=== PATIENT | female | born 1980 | race American Indian/Alaskan Native ===

== ENCOUNTER 2020-09-14 06:33 | Day surgery (SDC) | payer BC ==
[2020-09-14 07:04] LABS: Specific Gravity 1.025 (1.005-1.030)
[2020-09-14] MEDS ORDERED: Ringers Lactate 1,000 ML IV ONE (07:10)
[2020-09-14] MEDS: BUPIVACAINE 0.5% PF 10 ML VIAL ONE ×2 (07:21→07:40)
[2020-09-14] MEDS: LIDOCAINE 1% W/EPI 1:100,000 10 ML VIAL ONE ×2 (07:21→07:40)
[2020-09-14] MEDS ORDERED: LIDOCAINE 1% MPF 5 ML VIAL ONE (07:37)
[2020-09-14] MEDS ORDERED: propofoL 200 MG/20 ML VIAL IV ONE (07:37)
[2020-09-14] MEDS ORDERED: MIDAZOLAM HCL 2 MG/2 ML INJ ONE (07:37)
[2020-09-14] MEDS ORDERED: FENTANYL CITR 100 MCG/2 ML ONE (07:37)
[2020-09-14] MEDS ORDERED: KETOROLAC 30 MG/ML INJ ONE (07:58)
[2020-09-14] MEDS ORDERED: dexAMETHasone 10 MG/ML VIAL ONE (07:58)
[2020-09-14] MEDS ORDERED: NS 0.9% VIAL 10 ML ONE (08:11)
[2020-09-14] MEDS ORDERED: Phenylephrine HCl 10 MG/ML 1 ML VIAL ONE (08:11)
[2020-09-14] MEDS ORDERED: ONDANSETRON 4 MG/2 ML VIAL ONE (08:11)
[2020-09-14 08:40] VITALS: O2SAT 97
--- NOTE | 2020-09-14 09:30 | OP ---
Date of Procedure: 09/14/2020 Surgeon: Kira Pineda MD Proposition Player: None. Preoperative Diagnosis: Sebaceous versus epidermal inclusion cyst. Postoperative Diagnosis: Sebaceous versus epidermal inclusion cyst. Procedure: Excision of benign skin lesion, 2 cm diameter. Estimated Blood Loss: Less than 5 cc. Indication: Ms. Callahan presented with a palpable right posterior triangle neck mass, which was enlarg ing over a short period of time and had become very tender and erythematous. Due to travel and expos ure history, there was clinical concern for tuberculosis and a fine-needle aspiration was performed f or collection of culture. The AFB stains were negative and she was treated with oral Augmentin. She re-presented 2 days later with progression and formation of an abscess and in-office incision and dr kasper was performed with clinical findings suggestive of a sebaceous or epidermal inclusion cyst, wh ich had become significantly infected. She was treated conservatively with continued antibiotics and wound care packing. The infection resolved, but she had continued tenderness around the site with r esidual palpable subcutaneous mass. Due to the risk of recurrent infection and persistent symptoms i n this area, I recommended a formal excision. Description Of Procedure: The patient was brought to the operating room. She was placed under gener al anesthesia via LMA. A shoulder roll was placed and the neck was extended and flexed toward the le ft for exposure of the right neck. The site is injected with 5 mL of combination 1% lidocaine with e pinephrine and 0.5% plain bupivacaine in a 50:50 mixture. The area was prepped with Betadine and darnell ped in a sterile fashion. A 5 x 20 mm horizontal skin ellipse is incised using a 15-blade scalpel. The needlepoint electrocautery is then used to dissect through the underlying subcutaneous tissue and scar tissue, elevating the area around the previous cyst and infection to ensure complete removal of the cyst wall and prevent reinfection. After removal of the specimen, the scant areas of oozing wer e treated with electrocautery to control bleeding. The area was then thoroughly irrigated with steri le saline and closed in a layered fashion using 4-0 Vicryl deep sutures and 5-0 fast-absorbing gut zaragoza tures for the skin. The area was dressed with a bandage and the [facility] awakening in the operating room, which proceeded without difficulty. Disposition: The patient was transported to the recovery room in stable condition. She can be disch arged later today in the care of her family and follow up with Dr. Pineda in 10 days for suture yary katie and inspection of the wound. SCOT/SILVERIO Voice ID: [id number] Report ID: [id number]
[2020-09-14 09:41] VITALS: BP 128/69; TEMP 97.4
== END 2020-09-14 09:25 | disposition home health service (06) ==
LOC: OR 06:33
PROVIDERS: ATTEND Otolaryngology
PROC: 0JB40ZZ Excision of Right Neck Subcutaneous Tissue and Fascia, Open Approach (ICD-10-PCS; principal; 2020-09-14 07:30)
DX: L72.3 Sebaceous cyst (principal); Z20.822 Contact with and (suspected) exposure to COVID-19
CPT/HCPCS: 93005; 81025; 88304; 11422; U0002; J2704; J2370; J2250; J3010; J1100; J7120; J2405

== ENCOUNTER 2021-02-28 15:40 | Emergency (ER) | payer BC ==
--- NOTE | 2021-02-28 16:17 | ER ---
Nurse's Notes [facility] Name: Corry Callahan Age: 41 yrs Sex: Female : 1980 Arrival Date: 02/28/2021 Time: 15:43 Bed 13 Private MD: Diagnosis: Strain of other muscles, fascia and tendons at forearm level, left arm Presentation: 02/28 15:53 Chief complaint: Patient states: Left wrist/hand swelling and pain x 4 days, pain is jl7 worse at night, swelling stays the same all day and night. Coronavirus screen: At this time, the client does not indicate any symptoms associated with coronavirus-19. Ebola Screen: No symptoms or risks identified at this time. Initial Sepsis Screen: Does the patient meet any 2 criteria? No. Patient's initial sepsis screen is negative. Does the patient have a suspected source of infection? No. Patient's initial sepsis screen is negative. Risk Assessment: Do you want to hurt yourself or someone else? Patient reports no desire to harm self or others. Onset of symptoms was February 24, 2021. 15:53 Method Of Arrival: Ambulatory jl7 15:53 Acuity: BRISEIDA 4 jl7 Triage Assessment: 15:55 General: Appears in no apparent distress. uncomfortable, Behavior is calm, cooperative, jl7 appropriate for age. Pain: Complains of pain in left hand Pain currently is 5 out of 10 on a pain scale. at worst was 9 out of 10 on a pain scale. 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 - Social history:: Smoking status: Patient denies any tobacco usage or history of. Screenin:18 Abuse screen: Denies threats or abuse. Denies injuries from another. Nutritional ch5 screening: No deficits noted. Tuberculosis screening: No symptoms or risk factors identified. Fall Risk None identified. Assessment: 16:18 Reassessment: No changes from previously documented assessment. General: Appears in no ch5 apparent distress. Behavior is cooperative. Pain: Complains of pain in left wrist pain. Vital Signs: 15:53 BP 139 / 91; Pulse 73; Resp 17; Temp 98.5; Pulse Ox 97% ; Weight 70.31 kg; Height 5 ft. jl7 (152.40 cm); Pain 5/10; 15:53 Body Mass Index 30.27 (70.31 kg, 152.40 cm) jl7 ED Course: 15:43 Patient arrived in ED. as 15:55 Triage completed. jl7 15:55 Arm band placed on right wrist. jl7 16:04 Mike Ge PA is PHCP. jr8 16:04 Sonido Cooney MD is Attending Physician. jr8 16:11 Toño Jones, RN is Primary Nurse. ch5 16:16 Jose Pruett MD is Referral Physician. jr8 16:18 Bed in low position. Call light in reach. Side rails up X 1. ch5 16:18 No provider procedures requiring assistance completed. Patient did not have IV access ch5 during this emergency room visit. Administered Medications: No medications were administered Outcome: 16:17 Discharge ordered by . jr8 16:18 Discharged to home ch5 16:18 Condition: unchanged 16:18 Discharge instructions given to patient, Prescriptions given X 1. 16:33 Patient left the ED. 5 Signatures: Flavia Geller Josh, PA PA jr8 Papito Castaneda RN RN jl7 Toño Jones, MARI RN [facility]
--- NOTE | 2021-02-28 16:17 | EDPHYS ---
Physician Documentation [facility] Name: Corry Callahan Age: 41 yrs Sex: Female : 1980 Arrival Date: 02/28/2021 Time: 15:43 Bed 13 Private MD: ED Physician Sonido Cooney HPI: 02/28 16:18 This 41 yrs old Other Female presents to ER via Ambulatory with complaints of Hand jr8 Swelling, Hand Pain. 16:18 This is a 41-year-old female patient that presents to emergency room with complaints of jr8 left wrist pain. Patient stated that she lifted a gallon of milk the other day and about 30 minutes after that started having pain to the left ulnar side of her wrist. Has persisted for the past 4 days despite splint and anti-inflammatories.. 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 - Social history:: Smoking status: Patient denies any tobacco usage or history of. ROS: 16:18 Eyes: Negative for injury, pain, redness, and discharge, ENT: Negative for injury, jr8 pain, and discharge, Neck: Negative for injury, pain, and swelling, Cardiovascular: Negative for chest pain, palpitations, and edema, Respiratory: Negative for shortness of breath, cough, wheezing, and pleuritic chest pain, Abdomen/GI: Negative for abdominal pain, nausea, vomiting, diarrhea, and constipation, Back: Negative for injury and pain, Skin: Negative for injury, rash, and discoloration, Neuro: Negative for headache, weakness, numbness, tingling, and seizure. 16:18 MS/extremity: Positive for pain, swelling, tenderness, of the left wrist. Exam: 16:18 Constitutional: This is a well developed, well nourished patient who is awake, alert, jr8 and in no acute distress. Cardiovascular: Regular rate and rhythm with a normal S1 and S2. No gallops, murmurs, or rubs. Normal PMI, no JVD. No pulse deficits. Respiratory: Lungs have equal breath sounds bilaterally, clear to auscultation and percussion. No rales, rhonchi or wheezes noted. No increased work of breathing, no retractions or nasal flaring. Skin: Warm, dry with normal turgor. Normal color with no rashes, no lesions, and no evidence of cellulitis. Neuro: Awake and alert, GCS 15, oriented to person, place, time, and situation. Cranial nerves II-XII grossly intact. Motor strength 5/5 in all extremities. Sensory grossly intact. 16:18 Musculoskeletal/extremity: Extremities: grossly normal except: noted in the Left wrist: Patient has swelling to the proximal lateral left wrist over the flexor tendons of the fourth and fifth digits at the wrist level. Moderate pain to palpation over that area. No other external trauma noted., ROM: intact in all extremities, Circulation is intact in all extremities. Pulses: noted to be 2+ in the right radial artery and left radial artery, Sensation intact. Vital Signs: 15:53 BP 139 / 91; Pulse 73; Resp 17; Temp 98.5; Pulse Ox 97% ; Weight 70.31 kg; Height 5 ft. jl7 (152.40 cm); Pain 5/10; 15:53 Body Mass Index 30.27 (70.31 kg, 152.40 cm) jl7 MDM: 16:04 Patient medically screened. 8 16:15 Data reviewed: vital signs, nurses notes, and as a result, I will discharge patient. jr8 Data interpreted: Pulse oximetry: on room air is 97 %. Interpretation: normal. Counseling: I had a detailed discussion with the patient and/or guardian regarding: the historical points, exam findings, and any diagnostic results supporting the discharge/admit diagnosis, the need for outpatient follow up, a hand specialist, to return to the emergency department if symptoms worsen or persist or if there are any questions or concerns that arise at home. ED course: This was patient that she has swelling over the ulnar tract of her left wrist most likely she affected either the TFCC on that left side or one of the tendons associated with the fifth and fourth digits. Recommend that she continue to wear her brace for at least another week and then will start her on a stronger anti-inflammatory. She can do Tylenol in the meantime to for breakthrough pain. Patient ultimately needs to follow-up with a hand surgeon who we will refer her to.. Administered Medications: No medications were administered Disposition Summary: 02/28/21 16:17 Discharge Ordered Location: Home jr8 Problem: new jr8 Symptoms: have improved jr8 Condition: Stable jr8 Diagnosis - Strain of other muscles, fascia and tendons at forearm level, left arm jr8 Followup: jr8 - With: Jose Pruett MD - When: 2 - 3 days - Reason: Recheck today's complaints, Continuance of care, Re-evaluation by your physician Discharge Instructions: - Discharge Summary Sheet jr8 - Muscle Strain jr8 Forms: - Medication Reconciliation Form jr8 - Thank You Letter jr8 - Antibiotic Education jr8 - Prescription Opioid Use jr8 Prescriptions: - meloxicam 15 mg Oral tablet - take 1 tablet by ORAL route once daily As needed; 20 tablet; Refills: 0, jr8 Product Selection Permitted Addendum: 03/04/2021 06:57 Co-signature as Attending Physician, Sonido Cooney MD I agree with the assessment and c scott plan of care. Signatures: Sonido Cooney MD MD cha Roszak, Josh, PA PA jr8 Papito Castaneda, RN RN jl7
[2021-02-28 17:01] VITALS: BP 139/91; TEMP 98.5; O2SAT 97
== END 2021-02-28 16:33 | disposition home or self-care (01) ==
LOC: ER 15:40
DX: S56.812A Strain of other muscles, fascia and tendons at forearm level, left arm, initial encounter (principal); X50.0XXA Overexertion from strenuous movement or load, initial encounter
CPT/HCPCS: 99282

== ENCOUNTER 2021-09-10 02:12 | Emergency (ER) | payer BC ==
--- OUTSIDE RECORDS SUMMARY | 2021-09-10 02:15 | XMS REPORT | Continuity of Care Document ---
:1980 Author Organization [facility] t Address [address] [place] [address] Care Team Providers Name Role Phone Mansoor MORATAYA Primary Care Physician Unavailable Jerad Randall Attending Clinician Unavailable BELLA Attending Clinician Unavailable MIGEL Attending Clinician Unavailable MARIETTA Attending Clinician Unavailable ANTWAN NEUMANN Attending Clinician Unavailable NYDIA MERA Attending Clinician Unavailable Nydia Mera MD Attending Clinician Doctor Unassigned, Name Attending Clinician Unavailable TRUNG Attending Clinician Unavailable Payers Payer Name Policy Type Policy Number Effective Date Expiration Date S [facility] [id number] 2021 00:00:00 [facility] [id number] [facility] - BC Problems Condition Condition Condition Status Onset Resolution Last Treating Co mments Source Name Details Category Date Date Treatment Clinician Date Encounter Encounter Disease Active Uni vers for well for well 6- [place] Medical routine routine Branch gynecologi gynecologi brina exam brina exam Depressed Depressed Disease Active Uni vers mood mood 6-21 ity of 00:00: [place] 00 Medical Branch Allergies, Adverse Reactions, Alerts Allergy Allergy Status Severity Reaction(s) Onset Inactive Treating Comm ents Source Name Type Date Date Clinician NO KNOWN Drug Active Univers ALLERGIE Class ity of S [facility] Social History Social Habit Start Date Stop Date Quantity Comments Source Exposure to Not sure [facility] SARS-CoV-2 [facility] (event) Branch Tobacco use and 2020-11-12 2020-11-12 Never used Universit y of exposure 00:00:00 00:00:00 [facility] Alcohol intake 2020-11-12 2020-11-12 Current [facility] 00:00:00 00:00:00 non-drinker of [facility] alcohol Branch (finding) Sex Assigned At [birth year] Universit y of 00:00:00 00:00:00 [facility] Smoking Status Start Date Stop Date Source Never smoker [facility] Medications Ordered Filled Start Stop Current Ordering Indication Dosage Frequency Signature Comments Components Source Medication Medication Date Date Medication? Clinician (SIG) Name Name pravastatin 2020- No 40mg Take 40 mg Univers (PRAVACHOL) 11-12 by mouth ity of 40 mg 14:39: 00:00 at [place] tablet 23 :00 bedtime. Medical Branch pravastatin 2020- No 40mg Take 40 mg Univers (PRAVACHOL) 11-12 by mouth ity of 40 mg 14:39: 00:00 at [place] tablet 23 :00 bedtime. Medical Branch cephALEXin 2020- No 500mg Take 500 U nivers (KEFLEX) - 06-21 mg by ity of 500 mg 14:39: 00:00 mouth 2 [place] capsule 14 :00 (two) Medical times Branch daily. cephALEXin 2020- No 500mg Take 500 U nivers (KEFLEX) 6- 06-21 mg by ity of 500 mg 14:39: 00:00 mouth 2 [place] capsule 14 :00 (two) Medical times Branch daily. levonorgest Yes 1{devic 1 Device Univers reL 6-21 e} by ity of (MIRENA) 20 14:15: Intrauteri [place] mcg/24 14 ne route Medical hours (6 once now. Branch yrs) 52 mg IUD levonorgest Yes 1{devic 1 Device Univers reL 6-21 e} by ity of (MIRENA) 20 14:15: Intrauteri [place] mcg/24 14 ne route Medical hours (6 once now. Branch yrs) 52 mg IUD pantoprazol Yes 20mg Take 20 mg Univers e 20 mg EC 6-21 by mouth ity o f tablet 14:04: daily. [place] [address] Medical Branch atorvastati Yes 20mg Take 20 mg Univers n 20 mg 6-21 by mouth ity of tablet 14:04: at [place] [address] bedtime. Medical Branch pantoprazol Yes 20mg Take 20 mg Univers e 20 mg EC 6-21 by mouth ity o f tablet 14:04: daily. [address] atorvastati Yes 20mg Take 20 mg Univers n 20 mg 6-21 by mouth ity of tablet 14:04: at [place] [address] bedtime. Medical Branch pravastatin 2014-05 Yes 40mg Take 40 mg Univers (PRAVACHOL) 1-06 by mouth ity of 40 mg 18:15: at [facility] 16 bedtime. Medical Branch cephALEXin 2014-05 Yes 500mg Take 500 Un jamie (KEFLEX) 1-06 mg by ity of 500 mg 18:15: mouth 2 [place] capsule 16 (two) Medical times [facility] daily. Lipitor Lipitor Yes Francis 1 tablet [facility] Vital Signs Vital Name Observation Time Observation Value Comments Source Systolic blood 2020-11-12 13:59:00 132 mm[Hg] [place] [facility] Diastolic blood 2020-11-12 13:59:00 81 mm[Hg] [place] [facility] rate 2020-11-12 13:59:00 69 /min [facility] Body temperature 2020-11-12 13:59:00 36.72 Heidi [place] [facility] Res[facility] rate 2020-11-12 13:59:00 16 /min [facility] Body height 2020-11-12 13:59:00 152.4 cm [facility] Body weight 2020-11-12 13:59:00 69.582 kg [facility] BMI 2020-11-12 13:59:00 29.96 kg/m2 [facility] Procedures Procedure Date / Time Performed Performing Clinician Sour e ASSIGNMENT OF BENEFITS 2020-11-12 13:35:24 Doctor Unassigned, No [facility] Encounters Start End Encounter Admission Attending Care Care Encounter Source Date/Time Date/Time Type Type Clinicians Facility Department ID 2021-06-19 Outpatient Randall, [facility] 14[facility]07:[facility] Francis [id number] [facility] 2021-06-19 Outpatient Randall, [facility] 14:02:58 Francis [id number] [facility] 2021-06-19 Outpatient Randall, [facility] 13:59:56 Francis [id number] [facility] 2021-06-19 Outpatient Randall, [facility] 13:58:37 Francis [id number] [facility] 2021-06-19 Outpatient Randall, [facility] 13:27:04 Francis [id number] [facility] 2021-06-19 Outpatient Randall, [facility] 13[facility]26:23 Francis [id number] [facility] 2021-06-19 Outpatient Randall, [facility] 13:12:11 Francis [id number] [facility] 2021-06-19 Outpatient Randall, [facility] 13[facility]09:02 Francis [id number] [facility] 2021-06-19 Outpatient Randall, [facility] 12[facility]51:28 Francis [id number] [facility] 2021-06-19 Outpatient Randall, [facility] 12:34:08 Francis [id number] [facility] 2021-06-19 Outpatient Ranadll, [facility] [id number] [facility] 12:33:12 Francis [id number] [facility] 2021-06-19 [facility] 12[facility]32[facility]30 Francis [id number] [facility] 2021-06-19 [facility] 12[facility]07:19 Francis [id number] [facility] 2021-06-19 [facility] 11:20:57 Francis [id number] [facility] 2021-06-19 Outpatient Randall, [facility] 11:20:34 Francis [id number] [facility] 2021-06-19 Outpatient Randall, [facility] 11:20:19 Francis [id number] [facility] 2021-06-19 [facility] 11[facility]04:47 Francis [id number] [facility] 2021-06-19 Outpatient Randall, [facility] 11:03:05 Francis [id number] [facility] 2021-11-21 2021-11-21 Outpatient KAROLINE SANCHEZN [facility] [id number] Univers 10:00:00 10:00:00 [id number] [facility] 2021-11-21 2021-11-21 Outpatient MAYRA SANCHEZ [facility] [id number] [facility] 10:00:00 10:00:00 [facility] 2021-08-30 2021-08-30 Outpatient MIGEL [facility] [id number] [place] 00:00:00 00:00:[address] 2021-08-23 2021-08-23 Outpatient MIGEL [facility] [id number] [place] 00:00:00 00:00:00 KEYLA [address] 2021-08-06 2021-08-06 Outpatient SIFF, JOANA [facility] [id number] [place] 00:00:00 00:00:[address] 2021-08-06 2021-08-06 Outpatient SIFF, JOANA [facility] [id number] [place] 00:00:00 00:00:[address] 2021-08-06 2021-08-06 Outpatient SIFF, JOANA [facility] [id number] [place] 00:00:00 00:00:[address] 2021-08-06 2021-08-06 Outpatient SIFF, JOANA [facility] [id number] [place] 00:00:00 00:00:[address] 2021-08-06 2021-08-06 Outpatient SIFF, JOANA [facility] [id number] [place] 00:00:00 00:00:[address] 2021-04-23 2021-04-23 ambulatory [facility] [id number] [facility] 2021-04-22 2021-04-22 ambulatory [facility] [id number] [facility] 2021-04-16 2021-04-16 ambulatory [facility] [id number] [facility] 2021-04-16 2021-04-16 ambulatory [facility] [id number] [facility] 2021-04-15 2021-04-15 ambulatory [facility] [id number] [facility] 2021-03-25 2021-03-25 ambulatory [facility] [id number] [facility] 2021-03-20 2021-03-20 Outpatient JUANCARLOS NEUMANN [facility] [id number] [address] [place] [id number] 12:58:25 13:35:45 [facility] 2021-03-13 2021-03-13 Outpatient [facility] [id number] [facility] 2021-03-13 2021-03-13 Outpatient [facility] [id number] [facility] 2021-03-01 2021-03-01 Outpatient [facility] [id number] [facility] 2021-02-28 2021-02-28 Outpatient [facility] [id number] [facility] 2021-02-25 2021-02-25 Outpatient [facility] [id number] [facility] 2021-02-25 2021-02-25 Outpatient [facility] [id number] [facility] 2021-02-19 2021-02-19 Outpatient [facility] [id number] [facility] 2021-02-18 2021-02-18 Outpatient [facility] [id number] [facility] 2020-12-13 2020-12-13 Outpatient ZACK REGALADO [facility] [id number] Univers 13:30:00 13:30:00 [id number] 2020-12-06 2020-12-06 Outpatient [facility] [id number] [facility]00 [facility] 2020-11-16 2020-11-16 Outpatient [facility] [id number] [facility]00 [facility] 2020-11-12 2020-11-12 Office Zack Mera [facility] [id number] [facility] 08:38:02 10:04:07 Visit Nydia Rodas [id number] i ty [facility] [id number] Narciso s Professio [phone] Nd dical [address] 2020-11-12 2020-11-12 Outpatient R ZACK MERA [facility] [id number] Univers 08:30:00 08:30:00 ity of [facility] 2020-11-12 2020-11-12 Orders Doctor RIVKA [id number] Univers 00:00:00 00:00:00 Only Unassigned, LAURA [id number] ity of [facility] [id number] [place] as [phone] [address] 2020-10-29 2020-10-29 [facility] [id number] [facility] 2020-10-25 2020-10-25 [facility] [id number] [facility] 2020-10-24 2020-10-24 [facility] [id number] [facility] 2020-10-15 2020-10-15 [facility] [id number] [facility]00 [facility] 2020-09-19 2020-09-19 Outpatient TRUNG [facility] [id number] [place] 00:00:00 00:00:00 SARAH Macdonald [address] 2020-08-30 2020-08-30 [facility] [id number] [facility]00 [facility] 2020-08-29 2020-08-29 Outpatient [facility] [id number] [place] 00:00:00 00:00:[address] 2020-07-26 2020-07-26 Outpatient [facility] [id number] [facility] 2020-07-19 2020-07-19 Outpatient [facility] [id number] [facility] 2020-07-17 2020-07-17 Outpatient [facility] [id number] [facility]00 [facility] 2020-04-16 2020-04-16 Outpatient [facility] [id number] [facility]00 [facility] 2020-04-12 2020-04-12 Outpatient [facility] [id number] [facility]00 [facility] 2020-01-16 2020-01-16 [facility] [id number] 16:08:00 16:08:00 t [facility] 2019-10-24 2019-10-24 [facility] [id number] 13:21:00 13:21:00 t [employer] - [employer] [facility] Medicine l Medicine Outpati ent Clinics 2019-10-11 2019-10-11 [facility] [id number] [facility] 11:40:00 11:40:00 t [facility] Out[facility] Clinics 2019-09-29 2019-09-29 [facility] [id number] [facility] 10:30:00 10:30:00 t [employer] [facility] Medicine l Medicine Outpati ent Clinics 2019-06-30 2019-06-30 [facility] [id number] [facility] 13:20:00 13:20:00 t [employer] s - Drive [facility] Medicine l Medicine Outpati ent Clinics 2019-06-29 2019-06-29 [facility] [id number] 08:30:00 08:30:00 t Carney Carney [employer] Luke s - Drive [facility] Medicine l Medicine Outpati ent Clinics 2019-06-20 2019-06-20 [facility] [id number] [facility] 08:30:00 08:30:00 t Carney Carney [employer] s - Drive [facility] l Medicine Outpati ent Clinics 2019-05-09 2019-05-09 [facility] [id number] 11:32:00 11:32:00 t Carney Carney Eureka King s - Drive [facility] Medicine l Medicine Outpati ent Clinics 2019-03-24 2019-03-24 [facility] [id number] 09:00:00 09:00:00 t Carney Carney Eureka King s - Drive [facility] l Medicine Outpati ent Clinics 2019-03-16 2019-03-16 [facility] [id number] [facility] 13:35:00 13:35:00 t Carney Carney Eureka King s - Drive [facility] l Medicine Outpati ent Clinics 2019-03-16 2019-03-16 [facility] [id number] 09:36:00 09:36:00 t Carney Carney Eureka King s - Drive [facility] Medicine l Medicine Outpati ent Clinics 2018-11-17 2018-11-17 [facility] [id number] 11:15:00 11:15:00 t Carney Carney Eureka King s - [employer] [facility] l Medicine Outpati ent Clinics 2018-09-29 2018-09-29 [facility] [id number] 09:30:00 09:30:00 t [facility] l Outpati ent Clinics 2018-09-13 2018-09-13 [facility] [id number] 14:19:00 14:19:00 t Carney Carney Eureka King s - Drive [facility] Medicine l Medicine Outpati ent Clinics 2018-08-30 2018-08-30 [facility] [id number] 11:00:00 11:00:00 t Carney Carney Eureka King s - Drive [facility] Medicine l Medicine Outpati ent Clinics 2018-08-04 2018-08-04 [facility] [id number] [facility] 15:00:00 15:00:[address] Luke s - Drive [facility] Medicine l Medicine Outpati ent Clinics 2018-08-04 2018-08-04 [facility] [id number] 10:10:00 10:10:[address] Luke s - Drive [facility] Medicine l Medicine Outpati ent Clinics 2018-07-21 2018-07-21 [facility] [id number] 15:29:00 15:29:00 t Carney Carney [employer] Luke s - Drive [facility] Medicine l Medicine Outpati ent Clinics 2018-07-21 2018-07-21 [facility] [id number] [facility] 09:30:00 09:30:00 t [facility] - [facility] Outpat[facility] Clinics 2018-07-06 2018-07-06 [facility] [id number] 11:15:00 11:15:00 t [facility] Womens Care L es - Care Clinic [facility] Clinics 2018-06-08 2018-06-08 [facility] [id number] [facility] 08:30:00 08:30:00 t Carney Carney Eureka King s - Drive [facility] Medicine l Medicine Outpati ent Clinics 2018-01-18 2018-01-18 [facility] [id number] [facility] 09:15:00 09:15:00 t Carney Carney [employer] Luke s - Drive [facility] Medicine l Medicine Outpati ent Clinics 2018-01-11 2018-01-11 [facility] [id number] [facility] 11:03:00 11:03:[address] Luke s - Drive [facility] Medicine l Medicine Outpati ent Clinics 2017-12-03 2017-12-03 [facility] [id number] [facility] 15:15:00 15:15:00 t Carney Carney [employer] s - Drive [facility] Medicine l Medicine Outpati ent Clinics 2017-11-17 2017-11-17 [facility] [id number] 13:32:00 13:32:[address] [facility] [facility] ent Clinics 2017-11-16 2017-11-16 Outpatient Sarah Smitht [id number] [facility] 09:30:00 09:30:00 [facility] ent Clinics 2017-11-03 2017-11-03 Outpatient Sarah Roche [id number] [facility] 11:15:00 11:15:00 [facility] [facility] ent Clinics Results This patient has no known results.
[2021-09-10] MEDS ORDERED: MORPHINE 4 MG/ML SYR ONE (04:19)
[2021-09-10] MEDS ORDERED: NA CHLORIDE 0.9% 2,000 ML ONE (04:19)
[2021-09-10] MEDS ORDERED: ONDANSETRON 4 MG/2 ML VIAL ONE (04:19)
[2021-09-10] MEDS ORDERED: FAMOTIDINE 20 MG/2 ML VIAL IV ONE (04:20)
[2021-09-10 04:21] LABS: Absolute Lymphocytes (CBC) 0.9 K/uL (0.7-4.9); Hematocrit 39.1 % (36.0-45.0); Lymphocytes % 11.2 % (15.3-44.8); MPV 8.2 fL (7.6-11.3); RBC Red Blood Cell Count 4.43 M/uL (3.86-4.86)
[2021-09-10 04:36] LABS: Albumin 3.4 g/dL (3.4-5.0); Bilirubin Total 0.4 mg/dL (0.2-1.0); Potassium 3.2 mmol/L (3.5-5.1); Protein, Total 7.5 g/dL (6.4-8.2)
--- NOTE | 2021-09-10 06:59 | EDPHYS ---
Physician Documentation [facility] Name: Corry Callahan Age: 41 yrs Sex: Female : 1980 Arrival Date: 09/10/2021 Time: 02:27 Bed 18 Private MD: ED Physician Miguel Gu HPI: 09/10 05:08 This 41 yrs old Female presents to ER via Wheelchair with complaints of Nausea/Vomiting.kdr 05:08 The patient presents to the emergency department with nausea, that is mild, vomiting, kdr that is intermittent, abdominal pain, of the umbilical area, described as achy, and does not radiate. Onset: The symptoms/episode began/occurred just prior to arrival. Possible causes: unknown. The symptoms are aggravated by nothing. The symptoms are alleviated by nothing. Associated signs and symptoms: Pertinent positives: abdominal pain, nausea, vomiting. Severity of symptoms: At their worst the symptoms were mild moderate severe incapacitating in the emergency department the symptoms are worse markedly. The patient has not experienced similar symptoms in the past. The patient has not recently seen a physician. Patient states that a little after 1130 last night, she started to have nausea and vomiting. She felt like she needed to go to the bathroom but could not. She threw up 6 or 7 times. She states that she was having significant focal abdominal pain around her umbilicus. She has not had this before. She appears mildly uncomfortable. She otherwise is stable and without acute illness or injury presenting. GAS TESTER: 03:07 LMP N/A - IUD vc1 Historical: - Home Meds: 03:02 atorvastatin Oral [Active]; vc1 - PMHx: 03:02 GERD; High Cholesterol; vc1 - PSHx: 03:02 section; vc1 - Immunization history:: Adult Immunizations up to date, Client reports receiving the 2nd dose of the Covid vaccine, Flu vaccine is not up to date. - Social history:: Smoking status: Patient denies any tobacco usage or history of. ROS: 05:08 Constitutional: Negative for fever, chills, and weight loss, Eyes: Negative for injury, kdr pain, redness, and discharge, Neck: Negative for injury, pain, and swelling, Cardiovascular: Negative for chest pain, palpitations, and edema, Respiratory: Negative for shortness of breath, cough, wheezing, and pleuritic chest pain, Back: Negative for injury and pain, : Negative for injury, bleeding, discharge, and swelling, MS/Extremity: Negative for injury and deformity, Skin: Negative for injury, rash, and discoloration, Neuro: Negative for headache, weakness, numbness, tingling, and seizure activity. Psych: Negative for depression, anxiety, suicide ideation, homicidal ideation, and hallucinations, Allergy/Immunology: Negative for hives, rash, and allergies, Endocrine: Negative for neck swelling, polydipsia, polyuria, polyphagia, and marked weight changes, Hematologic/Lymphatic: Negative for swollen nodes, abnormal bleeding, and unusual bruising. 05:08 Abdomen/GI: Positive for abdominal pain, nausea and vomiting, abdominal cramps, abdominal distension, Negative for black/tarry stool, rectal pain. Exam: 05:08 Constitutional: This is a well developed, well nourished patient who is awake, alert, kdr and in no acute distress. Head/Face: Normocephalic, atraumatic. Eyes: Pupils equal round and reactive to light, extra-ocular motions intact. Lids and lashes normal. Conjunctiva and sclera are non-icteric and not injected. Cornea within normal limits. Periorbital areas with no swelling, redness, or edema. Neck: Trachea midline, no thyromegaly or masses palpated, and no cervical lymphadenopathy. Supple, full range of motion without nuchal rigidity, or vertebral point tenderness. No Meningismus. Chest/axilla: Normal chest wall appearance and motion. Nontender with no deformity. No lesions are appreciated. Cardiovascular: Regular rate and rhythm with a normal S1 and S2. No gallops, murmurs, or rubs. Normal PMI, no JVD. No pulse deficits. Respiratory: Lungs have equal breath sounds bilaterally, clear to auscultation and percussion. No rales, rhonchi or wheezes noted. No increased work of breathing, no retractions or nasal flaring. Back: No spinal tenderness. No costovertebral tenderness. Full range of motion. Skin: Warm, dry with normal turgor. Normal color with no rashes, no lesions, and no evidence of cellulitis. MS/ Extremity: Pulses equal, no cyanosis. Neurovascular intact. Full, normal range of motion. Neuro: Awake and alert, GCS 15, oriented to person, place, time, and situation. Cranial nerves II-XII grossly intact. Motor strength 5/5 in all extremities. Sensory grossly intact. Cerebellar exam normal. Normal gait. Psych: Awake, alert, with orientation to person, place and time. Behavior, mood, and affect are within normal limits. 05:08 Abdomen/GI: Inspection: obese Bowel sounds: active, diminished, in all quadrants, Palpation: soft, mild abdominal tenderness, in the umbilical area. Vital Signs: 02:58 BP 134 / 77; Pulse 103; Resp 16; Temp 97.6(O); Pulse Ox 99% on R/A; Weight 73.03 kg; vc1 Height 5 ft. 0 in. (152.40 cm); Pain 7/10; 03:24 BP 147 / 77; Pulse 98; Resp 19; Pulse Ox 98% ; al4 04:29 BP 145 / 73; Pulse 105; Resp 16 S; Pulse Ox 96% on R/A; al4 06:00 BP 144 / 94; Pulse 95; Resp 22; Pulse Ox 98% ; al4 07:04 BP 144 / 85; Pulse 99; Resp 17; Pulse Ox 97% ; al4 02:58 Body Mass Index 31.44 (73.03 kg, 152.40 cm) vc1 MDM: 05:08 Data reviewed: vital signs, nurses notes, lab test result(s), radiologic studies. kdr Counseling: I had a detailed discussion with the patient and/or guardian regarding: the historical points, exam findings, and any diagnostic results supporting the discharge/admit diagnosis, lab results, radiology results, the need for outpatient follow up. 06:58 Patient medically screened. kdr 09/10 03:43 Order name: CBC with Diff; Complete Time: 05:59 al4 09/10 03:43 Order name: CMP; Complete Time: 05:59 al4 09/10 03:43 Order name: Lipase; Complete Time: 05:59 al4 09/10 04:01 Order name: CT Abd/Pelvis - IV Contrast Only kdr 09/10 04:17 Order name: Troponin High Sensitivity; Complete Time: 05:59 EDMS 09/10 03:43 Order name: IV Saline Lock; Complete Time: 04:11 al4 09/10 03:43 Order name: Labs collected and sent; Complete Time: 04:11 al4 09/10 06:00 Order name: PO challenge; Complete Time: 06:19 kdr Administered Medications: 04:30 Drug: NS 0.9% 1000 ml Route: IV; Rate: 125 ml/hr; Site: right antecubital; al4 08:07 Follow up: IV Status: Completed infusion; IV Intake: 1000ml vg1 04:30 Drug: Zofran (Ondansetron) 4 mg Route: IVP; Site: right antecubital; al4 05:30 Follow up: Response: No adverse reaction al4 04:30 Drug: morphine 4 mg Route: IVP; Site: right antecubital; al4 04:57 Follow up: Response: No adverse reaction; Pain is decreased; RASS: Alert and Calm (0) al4 04:30 Drug: Pepcid (famotidine) 20 mg Route: IVP; Site: right antecubital; al4 05:30 Follow up: Response: No adverse reaction al4 04:31 Drug: NS 0.9% 1000 ml Route: IV; Rate: 1 bolus; Site: right antecubital; al4 08:07 Follow up: IV Status: Completed infusion; IV Intake: 1000ml vg1 Disposition Summary: 09/10/21 06:58 Discharge Ordered Location: Home kdr Problem: new kdr Symptoms: are resolved kdr Condition: Stable kdr Diagnosis - Abdominal pain, unspecified kdr - Abdominal pain, Generalized kdr - Other abdominal pain - Periumbilical kdr - Vomiting kdr Followup: kdr - With: Private Physician - When: 2 - 3 days - Reason: If symptoms return, Further diagnostic work-up, Recheck today's complaints, Continuance of care, Re-evaluation by your physician Discharge Instructions: - Discharge Summary Sheet kdr - Nausea and Vomiting, Adult, [id number] kdr - Abdominal Pain, Adult, [id number] kdr Forms: - Medication Reconciliation Form kdr - Thank You Letter kdr Prescriptions: - Pepcid 20 mg Oral Tablet - take 1 tablet by ORAL route once daily; 20 tablet; Refills: 0, Product kdr Selection Permitted - promethazine 25 mg Oral Tablet - take 1 tablet by ORAL route every 6 hours As needed; 20 tablet; Refills: 0, kdr Product Selection Permitted - Promethazine VC-Codeine 6.25-5-10 mg/5 mL Oral syrup - take 5 milliliter by ORAL route every 4-6 hours As needed as needed, not to kdr exceed 30 mL in 24 hours; 200 milliliter; Refills: 0, Product Selection Permitted Signatures: Dispatcher [employer] Miguel Fleming MD MD kdr Derrick Morfin Vanessa, RN RN vc1 EmeryJanuary RN vg1 Corrections: (The following items were deleted from the chart) 04:15 04:02 Troponin High Sensitivity+C.LAB.BRZ ordered. EDMS EDMS
--- NOTE | 2021-09-10 06:59 | ER ---
Nurse's Notes [facility] Name: Corry Callahan Age: 41 yrs Sex: Female : 1980 Arrival Date: 09/10/2021 Time: 02:27 Bed 18 Private MD: Diagnosis: Abdominal pain, unspecified;Abdominal pain, Generalized;Other abdominal pain-Periumbilical;Vomiting Presentation: 09/10 02:58 Chief complaint: Patient states: "A little after 11:30 last night I started throwing vc1 up, I feel like I need to go to the bathroom but I can't. I've threw up 6-7 times and it hurts really bad by my belly button.". Coronavirus screen: Vaccine status: Patient reports receiving the 2nd dose of the covid vaccine. Pfizer, plus booster nausea, vomiting. Client presents with at least one sign or symptom that may indicate coronavirus-19. Standard/surgical mask placed on the client. Provider contacted for isolation considerations. Ebola Screen: No symptoms or risks identified at this time. Initial Sepsis Screen: Does the patient meet any 2 criteria? HR > 90 bpm. No. Patient's initial sepsis screen is negative. Does the patient have a suspected source of infection? Yes: Acute abdominal pain. Risk Assessment: Do you want to hurt yourself or someone else? Patient reports no desire to harm self or others. Onset of symptoms was September 09, 2021 at 23:30. 02:58 Method Of Arrival: Wheelchair vc1 02:58 Acuity: BRISEIDA 3 vc1 Triage Assessment: 03:02 General: Appears in no apparent distress. uncomfortable, Behavior is anxious. Pain: vc1 Complains of pain in umbilical area Pain does not radiate. Pain currently is 7 out of 10 on a pain scale. Quality of pain is described as sharp. Neuro: No deficits noted. Cardiovascular: Patient's skin is warm and dry. Respiratory: Airway is patent Respiratory effort is even, unlabored, Respiratory pattern is regular, symmetrical. GI: Abdomen is round non-distended, Pt is actively vomiting. GI: Reports epigastric pain, nausea, vomiting. 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 - Social history:: Smoking status: Patient denies any tobacco usage or history of. Screenin:05 Abuse screen: Denies threats or abuse. Nutritional screening: No deficits noted. al4 Tuberculosis screening: No symptoms or risk factors identified. Fall Risk No fall in past 12 months (0 pts). No IV (0 pts). Ambulatory Aid- None/Bed Rest/Nurse Assist (0 pts). Gait- Normal/Bed Rest/Wheelchair (0 pts) Mental Status- Oriented to own ability (0 pts). Total Caballero Fall Scale indicates No Risk (0-24 pts). Assessment: 02:58 General: Appears in no apparent distress. uncomfortable, Behavior is cooperative, al4 anxious. Pain: Complains of pain in abdomen. Neuro: Level of Consciousness is awake, alert, obeys commands, Oriented to person, place, time, situation. Cardiovascular: Capillary refill < 3 seconds Patient's skin is warm and dry. Respiratory: Airway is patent Respiratory effort is unlabored, Respiratory pattern is regular. GI: Abdomen is non-distended, Abdomen is tender to palpation in right upper quadrant Reports nausea, vomiting, Patient currently denies diarrhea. 03:03 Reassessment: patient states that she has been sick since September 06 - she went to [facility] urgent care in [place] on the , and went to her PCP yesterday who diagnosed her with bronchitis and sent her to ED for chest x ray. 03:15 Reassessment: RN asked MD Gu if he wanted an EKG done, stated not at this time. al4 04:10 Reassessment: Casper from lab said he can add the troponin lab that is ordered onto the [facility] labs that have been sent already. 04:11 Reassessment: Patient appears in no apparent distress at this time. Patient and/or al4 family updated on plan of care and expected duration. Pain level reassessed. niece at bedside. patient alert and oriented.. 04:57 Reassessment: Patient states symptoms have improved. al4 06:18 Reassessment: Patient appears in no apparent distress at this time. Patient and/or al4 family updated on plan of care and expected duration. Pain level reassessed. 07:13 Reassessment: MD Gu wants fluid administration complete before discharge. also al4 adding additional prescription. 07:18 Reassessment: Pt up for d/c; currently waiting for IV fluid to complete. vg1 Vital Signs: 02:58 BP 134 / 77; Pulse 103; Resp 16; Temp 97.6(O); Pulse Ox 99% on R/A; Weight 73.03 kg; vc1 Height 5 ft. 0 in. (152.40 cm); Pain 7/10; 03:24 BP 147 / 77; Pulse 98; Resp 19; Pulse Ox 98% ; al4 04:29 BP 145 / 73; Pulse 105; Resp 16 S; Pulse Ox 96% on R/A; al4 06:00 BP 144 / 94; Pulse 95; Resp 22; Pulse Ox 98% ; al4 07:04 BP 144 / 85; Pulse 99; Resp 17; Pulse Ox 97% ; al4 02:58 Body Mass Index 31.44 (73.03 kg, 152.40 cm) vc1 ED Course: 02:27 Patient arrived in ED. kz 02:54 Miguel Gu MD is Attending Physician. kdr 02:58 Derrick Morfin is Primary Nurse. al4 03:02 Triage completed. vc1 03:05 Arm band placed on. al4 03:05 Placed in gown. Bed in low position. al4 03:30 Missed attempt(s): 20 gauge in right wrist. Bleeding controlled, band aid applied, al4 catheter tip intact. 03:40 Initial lab(s) drawn, by pr, sent to lab. Inserted saline lock: 20 gauge in right bb antecubital area, using aseptic technique. Blood collected. 05:31 CT Abd/Pelvis - IV Contrast Only In Process Unspecified. EDMS 08:06 No provider procedures requiring assistance completed. IV discontinued, intact, vg1 bleeding controlled, No redness/swelling at site. Pressure dressing applied. Administered Medications: 04:30 Drug: NS 0.9% 1000 ml Route: IV; Rate: 125 ml/hr; Site: right antecubital; al4 08:07 Follow up: IV Status: Completed infusion; IV Intake: 1000ml vg1 04:30 Drug: Zofran (Ondansetron) 4 mg Route: IVP; Site: right antecubital; al4 05:30 Follow up: Response: No adverse reaction al4 04:30 Drug: morphine 4 mg Route: IVP; Site: right antecubital; al4 04:57 Follow up: Response: No adverse reaction; Pain is decreased; RASS: Alert and Calm (0) al4 04:30 Drug: Pepcid (famotidine) 20 mg Route: IVP; Site: right antecubital; al4 05:30 Follow up: Response: No adverse reaction al4 04:31 Drug: NS 0.9% 1000 ml Route: IV; Rate: 1 bolus; Site: right antecubital; al4 08:07 Follow up: IV Status: Completed infusion; IV Intake: 1000ml vg1 Intake: 08:07 IV: 1000ml; Total: 1000ml. vg1 08:07 IV: 1000ml; Total: 2000ml. vg1 Outcome: 06:58 Discharge ordered by . kdr 08:06 Discharged to home ambulatory. vg1 08:06 Condition: good 08:06 Discharge instructions given to patient, Instructed on discharge instructions, follow up and referral plans. medication usage, Demonstrated understanding of instructions, follow-up care, medications, Prescriptions given X 3. 08:07 Patient left the ED. vg1 Signatures: Dispatcher [employer] EDMS Miguel Gu MD MD kdr Goldie Guerra RN RN bb Garcia, Victoria, RN RN vg1 Derrick Morfin alAnnelise Granda RN RN vc1 Aga Sabillon Corrections: (The following items were deleted from the chart) 03:38 02:58 General: Appears in no apparent distress. uncomfortable, Behavior is calm, al4 cooperative, al4 03:38 02:58 GI: Abdomen is non-distended, Abdomen is tender to palpation in right upper al4 quadrant Reports nausea, vomiting, Patient currently denies diarrhea, al4 04:31 04:11 Reassessment: Patient appears in no apparent distress at this time. Patient al4 and/or family updated on plan of care and expected duration. Pain level reassessed. al4
[2021-09-10 13:42] VITALS: TEMP 97.6
[2021-09-10 13:49] VITALS: BP 144/85; O2SAT 97
--- NOTE | 2021-09-10 15:41 | RAD REPORT ---
EXAM DESCRIPTION: CT Abdomen and Pelvis With Intravenous Contrast CLINICAL HISTORY: The patient is 41 years old and is Female; Abdominal pain, acute, nonlocalized TECHNIQUE: Axial computed tomography images of the abdomen and pelvis with intravenous contrast. S agittal and coronal reformatted images were created and reviewed. This CT exam was performed using one or more of the following dose reduction techniques: automated exposure control, adjustment of t he mA and/or kV according to patient size, and/or use of iterative reconstruction technique. COMPARISON: No relevant prior studies available. FINDINGS: LUNG BASES: Unremarkable. No mass. No consolidation. ABDOMEN: LIVER: Unremarkable. No mass. GALLBLADDER AND BILE DUCTS: No calcified stones. No ductal dilation. PANCREAS: No ductal dilation. No mass. SPLEEN: Unremarkable. ADRENALS: Unremarkable. No mass. KIDNEYS AND URETERS: Unremarkable. The kidneys enhance symmetrically. No obstructing renal or ure teral calculus is seen. No hydronephrosis or hydroureter. No perinephric fluid or stranding. STOMACH AND BOWEL: The stomach is not well distended. The majority the small bowel is decompresse d. A few small bowel loops are fluid-filled. Stool is present within the colon. There is no mucosal t hickening or evidence of obstruction. PELVIS: APPENDIX: The appendix is normal in caliber without surrounding inflammation. BLADDER: The bladder is well distended. REPRODUCTIVE: IUD is in place. Heterogeneous fundal uterine fibroid is noted. The ovaries are unr emarkable. ABDOMEN and PELVIS: INTRAPERITONEAL SPACE: Unremarkable. No free air. No significant fluid collection. BONES/JOINTS: No acute fracture. SOFT TISSUES: The soft tissues are normal. VASCULATURE: Unremarkable. No abdominal aortic aneurysm. LYMPH NODES: Unremarkable. No enlarged lymph nodes. IMPRESSION: No acute findings on this contrasted CT of the abdomen and pelvis to explain the patient 's symptoms. Electronically signed by: Cortney Mcgovern MD 09/10/2021 5:38 AM CDT Due to temporary technical issues with the PACS/Fluency reporting system, reports are being signed by the in house radiologists without review as a courtesy to insure prompt reporting. The interpreting radiologist is fully responsible for the content of the report.
== END 2021-09-10 08:07 | disposition home or self-care (01) ==
LOC: ER 02:12
DX: R10.84 Generalized abdominal pain (principal); R11.2 Nausea with vomiting, unspecified; R10.9 Unspecified abdominal pain; E78.00 Pure hypercholesterolemia, unspecified; K21.9 Gastro-esophageal reflux disease without esophagitis
CPT/HCPCS: 96361; 85025; 36415; 84484; 83690; 80053; 74177; 96375; 96374; 99284; Q9967; J7030; J2405; J3490